=== PATIENT | female | born 1980 | race Caucasian/White ===

== ENCOUNTER 2016-12-12 14:01 | Emergency (ER) | payer OTHER ==
[~2016-12-12 14:01] MED LIST: ALBUTEROL17 G1 IH; ALPRAZOLAM PO; AMBIEN10 MG PO; AMOXICILLIN PO; AMOXICILLIN500 M1 PO; CIPRO PO; CLEOCIN150 MG PO; COMPAZINE10 MG PO; DIAZEPAM PO; HYDROCODON-ACE1 EAC4 PO; IBUPROFEN PO; IBUPROFEN600 MG PO; KCL PO; LORTAB 10-5001 EACH PO; LORTAB 2.5/5001 TAB PO; NABUMETONE PO; NAPROXEN PO; NO MEDICATIONS; PEN-VEE K PO; PENICILLIN PO; PREDNISONE PO; PREDNISONE10 MG PO; PRENATAL1 TA1; PRENATAL1 TA1 PO; PYRIDIUM PO; ROBAXIN PO; SEROQUEL PO; SKELAXIN PO; STERAPRED PO; TYLOX 5-500 CA1 EACH PO; TYLOX1 CAP 5/50 PO; ULTRAM PO; VICODIN 5/500 T1 TAB PO; VISTARIL PO; XANAX1 MG PO; ZITHROMAX PO
[2016-12-12] MEDS ORDERED: ALPRAZOLAM (14:04)
[2016-12-12] MEDS ORDERED: NEURONTIN (14:05)
[2016-12-12] MEDS ORDERED: ZOLOFT (14:05)
== END 2016-12-12 15:27 | disposition home or self-care (01) ==
LOC: SED 14:01
DX: S31.815A Open bite of right buttock, initial encounter (principal); S30.0XXA Contusion of lower back and pelvis, initial encounter; F17.210 Nicotine dependence, cigarettes, uncomplicated; Z88.0 Allergy status to penicillin; Z79.899 Other long term (current) drug therapy; W54.0XXA Bitten by dog, initial encounter; Z23 Encounter for immunization
CPT/HCPCS: 90471; 90715; 99283